=== PATIENT | female | born 1965 | race Caucasian/White ===

== ENCOUNTER 2017-10-03 13:41 | Emergency (ER) | payer BC ==
--- NOTE | 2017-10-03 14:18 | RAD REPORT ---
EXAM DESCRIPTION: CT - Head Brain Wo Cont - 10/03/2017 2:12 pm CLINICAL HISTORY: Headache, nausea and vomiting COMPARISON: None. TECHNIQUE: Axial 5 mm thick images of the head were obtained without IV contrast. All CT scans are performed using dose optimization technique as appropriate and may include automated exposure control or mA/KV adjustment according to patient size. FINDINGS: No intracranial hemorrhage, mass, edema or shift of mid-line structures. No acute infarcti on changes seen. No abnormal extra-axial fluid collections. Ventricles are normal. Mastoid air cells and visualized portions of the paranasal sinuses are clear. No acute bony findings. IMPRESSION: Negative non-contrast CT head examination.
[2017-10-03 15:10] LABS: Urine Blood 2+ (NEG); Urine Glucose NEGATIVE (NEG); Urine Protein TRACE (NEG); Urine Specific Gravity >1.030 (1.005-1.030); Urine pH 5.5 (5.0-7.0)
[2017-10-03 15:20] LABS: Urine Culture Reflex Order NOT NEEDED
[2017-10-03 15:25] LABS: Urine Bacteria <20 /HPF (<20); Urine Mucus 2+ /HPF (NONE SEEN)
[2017-10-03] MEDS ORDERED: ACETAMINOPHEN 325 MG TABLET ONE (15:40)
[2017-10-03] MEDS ORDERED: ONDANSETRON 4 MG/2 ML VIAL ONE (15:40)
[2017-10-03] MEDS ORDERED: NA CHLORIDE 0.9% 1,000 ML ONE (15:42)
[2017-10-03 15:43] LABS: Absolute Lymphocytes (CBC) 0.3 K/uL (0.7-4.9); Absolute Monocytes 0.2 K/uL (0.1-1.3); Absolute Neutrophil 3.4 K/uL (1.8-8.0); Albumin 3.7 g/dL (3.4-5.0); Basophils % 0.1 % (0-1.3); Bilirubin Direct 0.1 mg/dL (0-0.2); Bilirubin Total 0.6 mg/dL (0.2-1.0); Lymphocytes % 6.6 % (15.3-44.8); MCH 27.8 pg (27.0-35.0); MCV 81.8 fL (80-100); MPV 8.2 fL (7.6-11.3); Monocytes % 5.1 % (3.3-12.3); Potassium 3.6 mmol/L (3.5-5.1); Protein, Total 7.2 g/dL (6.4-8.2)
[2017-10-03] MEDS ORDERED: METOPROLOL TAR 25 MG TAB ONE (16:19)
[2017-10-03 17:16] LABS: Blood Morphology Comment NOT SEEN (NOT SEEN); Platelet Estimate ADEQ; Urine White Blood Cell Casts OK
--- NOTE | 2017-10-03 17:52 | RAD REPORT ---
EXAM DESCRIPTION: CT - Abdomen Pelvis W Contrast - 10/03/2017 5:43 pm CLINICAL HISTORY: Abdominal pain, nausea and vomiting, possible appendicitis COMPARISON: CT study May 2014 TECHNIQUE: Biphasic, helical CT imaging of the abdomen and pelvis was performed following 100 ml non -ionic IV contrast. Oral contrast was given. All CT scans are performed using dose optimization technique as appropriate and may include automated exposure control or mA/KV adjustment according to patient size. FINDINGS: No suspicious findings in the lung bases. The liver, spleen, and pancreas show no suspicious findings. Gallbladder and biliary tree are also wi thout suspicious finding. Symmetric renal function is seen with no hydronephrosis or suspicious renal mass. No urinary bladder abnormality. Enlarged lobulated multi fibroid uterus is present. Posterior fibroid has undergone sign ificant calcifications since 2014. Overall size of the uterus is not substantially different. No new or enlarging ovarian process. No gastric dilatation or wall thickening. No acute small bowel finding. The appendix is identifiable and normal. No acute colon process seen. No free air, free fluid or inflammatory stranding. No chandu ia, mass or bulky lymphadenopathy. A few small mesenteric lymph nodes are present. No adrenal abnorma lity. Disc and bony degenerative changes are present at the lumbosacral junction. No acute bone finding cecy ntifiable. IMPRESSION: No appendicitis or other acute GI process identifiable. Patient has a few small mesenter ic lymph nodes present. Moderate stool volume in the sigmoid and rectum. Colon assessment is limited by the amount of contras t and stool. Gallbladder, biliary tree and solid abdominal viscera without acute finding. Enlarged multi fibroid uterus without suspicious change from 2015.
--- NOTE | 2017-10-03 18:04 | ER ---
Nurse's Notes [facility] Name: Lizeth Mays Age: 52 yrs Sex: Female : 1965 Arrival Date: 10/03/2017 Time: 13:45 Bed 13 Private MD: Valeriano Yen B Diagnosis: Vomiting;Enteritis;Dehydration Presentation: 10/03 13:49 Presenting complaint: Patient states: Reports having had a headache, and nausea and sg vomiting that started last night, pt reports that any little bit of water has come up with vomiting, reports feeling weak and dizzy as well. Transition of care: patient was not received from another setting of care. Onset of symptoms was October 03, 2017. Risk Assessment: Do you want to hurt yourself or someone else? Patient reports no desire to harm self or others. Initial Sepsis Screen: Does the patient meet any 2 criteria? No. Patient's initial sepsis screen is negative. Does the patient have a suspected source of infection? No. Patient's initial sepsis screen is negative. Care prior to arrival: None. 13:49 Method Of Arrival: Ambulatory sg 13:49 Acuity: MABEL 3 sg ACCT EXEC: 13:50 LMP N/A - Post-menopause sg Historical: - Allergies: 13:52 Codeine; sg 13:52 PENICILLINS; sg - Home Meds: 13:52 None [Active]; sg - PMHx: 13:52 None; sg - PSHx: 13:52 None; sg - Immunization history:: Adult Immunizations up to date. - Social history:: Smoking status: Patient/guardian denies using tobacco. - Ebola Screening: : Patient negative for fever greater than or equal to 101.5 degrees Fahrenheit, and additional compatible Ebola Virus Disease symptoms Patient denies exposure to infectious person Patient denies travel to an Ebola-affected area in the 21 days before illness onset No symptoms or risks identified at this time. - Family history:: not pertinent. - Hospitalizations: : No recent hospitalization is reported. Screenin:40 Abuse screen: Denies threats or abuse. Nutritional screening: No deficits noted. rb1 Tuberculosis screening: No symptoms or risk factors identified. Fall Risk None identified. Assessment: 14:40 General: Appears in no apparent distress. comfortable, Behavior is calm, cooperative, rb1 Reports fever for 12-24 hours. Neuro: Level of Consciousness is awake, alert, obeys commands, Oriented to person, place, time, situation. Cardiovascular: Capillary refill < 3 seconds is brisk in bilateral fingers. Respiratory: Airway is patent Respiratory effort is even, unlabored, Respiratory pattern is regular, symmetrical. GI: Abdomen is flat, Reports diarrhea, nausea, vomiting. : No signs and/or symptoms were reported regarding the genitourinary system. Derm: Skin is pink, warm \T\ dry. 14:40 Pain: Complains of pain in headache Pain currently is 5 out of 10 on a pain scale. rb1 Musculoskeletal: Range of motion: intact in all extremities. 15:40 Reassessment: Patient appears in no apparent distress at this time. Patient and/or rb1 family updated on plan of care and expected duration. Pain level reassessed. Patient is alert, oriented x 3, equal unlabored respirations, skin warm/dry/pink. 16:39 Reassessment: Patient appears in no apparent distress at this time. No changes from rb1 previously documented assessment. 17:37 Reassessment: Patient appears in no apparent distress at this time. Patient and/or rb1 family updated on plan of care and expected duration. Pain level reassessed. Patient is alert, oriented x 3, equal unlabored respirations, skin warm/dry/pink. 18:19 Reassessment: Patient appears in no apparent distress at this time. No changes from rb1 previously documented assessment. Provider at bedside. Vital Signs: 13:50 Pulse 123; Resp 17; Temp 99.5(TE); Pulse Ox 98% on R/A; Weight 62.14 kg (R); Height 5 sg ft. 3 in. (160.02 cm); Pain 7/10; 13:53 BP 107 / 74; sg 15:44 BP 104 / 81; Pulse 102; Resp 19; Pulse Ox 99% on R/A; rb1 16:44 BP 100 / 73; Pulse 91; Resp 17; Pulse Ox 98% on R/A; rb1 17:44 BP 103 / 77; Pulse 80; Resp 17; Pulse Ox 100% on R/A; rb1 13:50 Body Mass Index 24.27 (62.14 kg, 160.02 cm) sg ED Course: 13:45 Patient arrived in ED. sb2 13:45 Valeriano Yen MD is Private Physician. sb2 13:50 Triage completed. sg 13:50 Arm band placed on. sg 14:12 CT Head Brain wo Cont In Process Unspecified. EDMS 14:12 CT completed. Patient tolerated procedure well. Patient moved back from CT. Patient vr moved back from radiology. 14:20 Urine collected: clean catch specimen. sg 14:46 Troy Adams MD is Attending Physician. rn 14:55 Urine Culture Sent. 5 14:55 Urine Microscopic Only Sent. 5 14:55 Urine --Ancillary (enter results) Sent. mh5 14:55 Urine Dipstick--Ancillary (enter results) Sent. mh5 15:01 Oral contrast given. vr 15:16 Patient has correct armband on for positive identification. Placed in gown. Bed in low mh5 position. Call light in reach. Side rails up X 1. Adult w/ patient. Pillow given. Pulse ox on. NIBP on. 15:17 Initial lab(s) drawn, by tn, sent to lab. Flu and/or RSV swab sent to lab. Inserted [facility] saline lock: 22 gauge in right antecubital area, using aseptic technique. Blood collected. 15:18 Flu Sent. 5 15:18 Basic Metabolic Panel Sent. 5 15:18 CBC with Diff Sent. 5 15:18 Creatinine for Radiology Sent. 5 15:18 Hepatic Function Sent. 5 15:18 Lipase Sent. 5 15:18 Urine Culture Sent. 5 15:18 Urine Microscopic Only Sent. 5 15:34 Lida Rasmussen, RN is Primary Nurse. rb1 17:44 CT Abd/Pelvis - W/Contrast In Process Unspecified. EDMS 18:26 No provider procedures requiring assistance completed. IV discontinued, intact, rb1 bleeding controlled, No redness/swelling at site. Pressure dressing applied. Administered Medications: 15:46 Drug: Zofran 4 mg Route: IVP; Site: right antecubital; rb1 16:10 Follow up: Response: No adverse reaction; Nausea is decreased rb1 15:47 Drug: NS 0.9% 1000 ml Route: IV; Rate: 1000 ml; Site: right antecubital; rb1 16:50 Follow up: IV Status: Completed infusion rb1 15:47 Drug: Tylenol 650 mg Route: PO; rb1 16:06 Follow up: Response: No adverse reaction; Pain is decreased rb1 16:21 Drug: Metoprolol 25 mg Route: PO; rb1 16:50 Follow up: Response: No adverse reaction; Pulse 80 rb1 Intake: Outcome: 18:03 Discharge ordered by . rn 18:26 Discharged to home ambulatory, with significant other. rb1 18:26 Condition: stable 18:26 Discharge instructions given to patient, Instructed on discharge instructions, follow up and referral plans. medication usage, Demonstrated understanding of instructions, follow-up care, medications, Prescriptions given X 1. 18:27 Patient left the ED. rb1 Signatures: Dispatcher [employer] EDMS Gordon Gil RN Troy Herzog MD MD rn Davis, Victoria vr Barber, Rebecca, RN RN Traci Head [facility] Molly Sheppard2 Corrections: (The following items were deleted from the chart) 13:56 13:50 Pulse 115bpm; Resp 17bpm; Pulse Ox 98% RA; Temp 99.5F Temporal; 62.14 kg sg Reported; Height 5 ft. 3 in.; BMI: 24.2; Pain 7/10; sg
--- NOTE | 2017-10-03 18:04 | EDPHYS ---
Physician Documentation [facility] Name: Lizeth Mays Age: 52 yrs Sex: Female : 1965 Arrival Date: 10/03/2017 Time: 13:45 Bed 13 Private MD: Valeriano Yen B ED Physician Troy Adams HPI: 10/03 14:56 This 52 yrs old Female presents to ER via Ambulatory with complaints of rn Nausea/Vomiting, diarrhea, abd pain. 14:56 The patient presents to the emergency department with nausea, vomiting, diarrhea, rn abdominal pain. 14:57 Onset: The symptoms/episode began/occurred last night. Possible causes: unknown. The rn symptoms are aggravated by food , The symptoms are alleviated by nothing. Associated signs and symptoms: Pertinent positives: abdominal pain, diarrhea, fever, nausea, vomiting. Severity of symptoms: At their worst the symptoms were mild in the emergency department the symptoms are unchanged. The patient has not experienced similar symptoms in the past. The patient has not recently seen a physician. 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 - Social history:: Smoking status: Patient/guardian denies using tobacco. - Ebola Screening: : Patient negative for fever greater than or equal to 101.5 degrees Fahrenheit, and additional compatible Ebola Virus Disease symptoms Patient denies exposure to infectious person Patient denies travel to an Ebola-affected area in the 21 days before illness onset No symptoms or risks identified at this time. - Family history:: not pertinent. - Hospitalizations: : No recent hospitalization is reported. ROS: 14:57 Constitutional: + fever and chills Eyes: Negative for injury, pain, redness, and safety intern, ENT: Negative for injury, pain, and discharge, Neck: Negative for injury, pain, and swelling, Cardiovascular: Negative for chest pain, palpitations, and edema, Respiratory: Negative for shortness of breath, cough, wheezing, and pleuritic chest pain, Abdomen/GI: + abd pain/nausea/vomiting/diarrhea MS/Extremity: Negative for injury and deformity, Skin: Negative for injury, rash, and discoloration, Neuro: + headache and generalized weakness Exam: 14:57 Constitutional: This is a well developed, well nourished patient who is awake, alert, rn and in no acute distress. Head/Face: Normocephalic, atraumatic. Eyes: Pupils equal round and reactive to light, extra-ocular motions intact. Lids and lashes normal. Conjunctiva and sclera are non-icteric and not injected. Cornea within normal limits. Periorbital areas with no swelling, redness, or edema. ENT: dry MM Neck: Supple, full range of motion without nuchal rigidity. No Meningismus. Abdomen/GI: soft, mild periumbilical and RLQ tenderness, no rebound Skin: Warm, dry Neuro: Awake and alert, GCS 15. Neurologically intact Vital Signs: 13:50 Pulse 123; Resp 17; Temp 99.5(TE); Pulse Ox 98% on R/A; Weight 62.14 kg (R); Height 5 sg ft. 3 in. (160.02 cm); Pain 7/10; 13:53 BP 107 / 74; sg 15:44 BP 104 / 81; Pulse 102; Resp 19; Pulse Ox 99% on R/A; rb1 16:44 BP 100 / 73; Pulse 91; Resp 17; Pulse Ox 98% on R/A; rb1 17:44 BP 103 / 77; Pulse 80; Resp 17; Pulse Ox 100% on R/A; rb1 13:50 Body Mass Index 24.27 (62.14 kg, 160.02 cm) sg MDM: 14:46 Patient medically screened. rn 18:01 Differential diagnosis: Nonspecific abd pain, gastritis, appendicitis, diverticulitis, rn viral gastroenteritis, gastroenteritis. Data reviewed: vital signs, nurses notes, lab test result(s), radiologic studies, CT scan, and as a result, I will discharge patient. Counseling: I had a detailed discussion with the patient and/or guardian regarding: the historical points, exam findings, and any diagnostic results supporting the discharge/admit diagnosis, lab results, radiology results, the need for outpatient follow up, to return to the emergency department if symptoms worsen or persist or if there are any questions or concerns that arise at home. 18:01 Special discussion: Based on the patient's Hx, exam, and Dx evaluation, there is no rn indication for emergent surgery or inpatient Tx. It is understood by the patient/guardian that if the Sx's persist or worsen they need to return immediately for re-evaluation. I discussed with the patient/guardian in detail that at this point there is no indication for admission to the hospital. It is understood, however, that if the symptoms persist or worsen the patient needs to return immediately for re-evaluation. 10/03 13:59 Order name: Urine Culture [facility] 10/03 13:59 Order name: Urine Microscopic Only; Complete Time: 15:56 [facility] 10/03 14:25 Order name: Urine Dipstick--Ancillary (enter results); Complete Time: 15:56 em1 10/03 14:25 Order name: Urine --Ancillary (enter results); Complete Time: 15:56 [facility] 10/03 14:55 Order name: Basic Metabolic Panel; Complete Time: 15:56 10/03 14:55 Order name: CBC with Diff; Complete Time: 17:55 10/03 13:58 Order name: CT Head Brain wo Cont; Complete Time: 14:46 [facility] 10/03 14:55 Order name: Creatinine for Radiology; Complete Time: 15:56 10/03 14:55 Order name: Hepatic Function; Complete Time: 15:56 10/03 14:55 Order name: Lipase; Complete Time: 15:56 10/03 14:55 Order name: CT Abd/Pelvis - W/Contrast; Complete Time: 17:55 10/03 14:55 Order name: Flu; Complete Time: 15:56 10/03 17:11 Order name: CBC Smear Scan; Complete Time: 17:55 [facility] 10/03 13:59 Order name: Urine Dipstick-Ancillary (obtain specimen); Complete Time: 14:24 [facility] 10/03 14:55 Order name: IV Saline Lock; Complete Time: 15:18 rn 10/03 14:55 Order name: Labs collected and sent; Complete Time: 18:18 rn Administered Medications: 15:46 Drug: Zofran 4 mg Route: IVP; Site: right antecubital; rb1 16:10 Follow up: Response: No adverse reaction; Nausea is decreased rb1 15:47 Drug: NS 0.9% 1000 ml Route: IV; Rate: 1000 ml; Site: right antecubital; rb1 16:50 Follow up: IV Status: Completed infusion rb1 15:47 Drug: Tylenol 650 mg Route: PO; rb1 16:06 Follow up: Response: No adverse reaction; Pain is decreased rb1 16:21 Drug: Metoprolol 25 mg Route: PO; rb1 16:50 Follow up: Response: No adverse reaction; Pulse 80 rb1 Disposition: 10/03/17 18:03 Discharged to Home. Impression: Vomiting, Enteritis, Dehydration. - Condition is Stable. - Discharge Instructions: Dehydration, Adult, Nausea and Vomiting, Viral Gastroenteritis, Viral Infections. - Prescriptions for Zofran ODT 4 mg Oral tablet,disintegrating - place 1 tablet by TRANSLINGUAL route every 8-10 hours As needed; 20 tablet. - Medication Reconciliation Form, Thank You Letter, Antibiotic Education, Prescription Opioid Use form. - Follow up: Private Physician; When: As needed; Reason: Recheck today's complaints, Re-evaluation by your physician. - Problem is new. - Symptoms have improved. Signatures: Dispatcher [employer] EDMS Gordon Gil RN RN sg Yecenia Jeff, GUITAR PLAYER-C GUITAR PLAYER-Csnw Troy Adams MD MD rn Barber, Rebecca, RN RN rb1 Corrections: (The following items were deleted from the chart) 18:27 18:03 10/03/2017 18:03 Discharged to Home. Impression: Vomiting; Enteritis; rb1 Dehydration. Condition is Stable. Forms are Medication Reconciliation Form, Thank You Letter, Antibiotic Education, Prescription Opioid Use. Follow up: Private Physician; When: As needed; Reason: Recheck today's complaints, Re-evaluation by your physician. Problem is new. Symptoms have improved. rn
[2017-10-03 18:31] VITALS: TEMP 99.5
[2017-10-03 18:35] VITALS: BP 103/77; O2SAT 100
== END 2017-10-03 18:27 | disposition home or self-care (01) ==
LOC: ER 13:41
DX: K52.9 Noninfective gastroenteritis and colitis, unspecified (principal); E86.0 Dehydration; Z88.0 Allergy status to penicillin; Z88.5 Allergy status to narcotic agent
CPT/HCPCS: 36415; 70450; 74177; 80048; 80076; 81003; 81015; 81025; 83690; 85025; 87086; 87088; 87804; 96361; 96374; 99284; J2405; J7030